=== PATIENT | female | born 1980 | race Two or more races ===

== ENCOUNTER 2018-05-22 10:38 | Emergency (ER) | payer SELFPAY ==
[~2018-05-22] VITALS: Ht 152.4 cm; Wt 76.7 kg
--- NOTE | 2018-05-22 10:58 | NUR ---
ED Nurse Note: Pt came into the ER w/ complaints of headache w/ nausea since this morning. Pt denies vomiting. Pt is rating the pain a 10/10. Non radiating. A + O x4. Ambulatory. Skin warm to touch.
[2018-05-22 10:59] VITALS: BP 135/95
[2018-05-22] MEDS ORDERED: Metoclopramide 10mg/2ml Inj IVP ONE (11:00)
[2018-05-22 11:34] LABS: BASOPHILS % (AUTO) 1.8 % (0.0-2.0); EOSINOPHILS % (AUTO) 2.6 % (0.0-3.0); HEMOGLOBIN 12.9 G/DL (12.0-16.0); LYMPHOCYTES % (AUTO) 26.6 % (20.0-45.0); MEAN CORPUSCULAR VOLUME 89 FL (80-99); MONOCYTES % (AUTO) 7.5 % (1.0-10.0); NEUTROPHILS % (AUTO) 61.5 % (45.0-75.0); PLATELET COUNT 274 K/UL (150-450); RED BLOOD COUNT 4.29 M/UL (4.20-5.40); RED CELL DISTRIBUTION WIDTH 11.8 % (11.6-14.8); WHITE BLOOD COUNT 6.1 K/UL (4.8-10.8)
[2018-05-22 11:37] LABS: APPEARANCE,URINE CLEAR; BILIRUBIN, URINE NEGATIVE (NEGATIVE); COLOR,URINE PALE YELLOW; GLUCOSE, URINE (UA) NEGATIVE (NEGATIVE); KETONES,URINE NEGATIVE (NEGATIVE); LEUKOCYTE ESTERASE ,URINE 2+ (NEGATIVE); NITRITE,URINE NEGATIVE (NEGATIVE); PH,URINE 6.5 (4.5-8.0); PROTEIN,URINE NEGATIVE (NEGATIVE); UROBILINOGEN,URINE NORMAL MG/DL (0.0-1.0)
--- NOTE | 2018-05-22 11:39 | Emergency Room Report ---
History of Present Illness General Chief Complaint: Headache Source: Patient Present Illness HPI Patient is a 38-year-old female presented after increased headache. Patient reports having increased throbbing right-sided headache. She stated this had acute onset. She reports having increased nausea without any vomiting. She denies any diarrhea. She reports having onset of symptoms this morning.. She had prior history of hypertension. Allergies: Coded Allergies: No Known Allergies (Unverified , 05/22/18) Patient History Past Medical History: see triage record Last Menstrual Period: now Now: No Reviewed Nursing Documentation: PMH: Agreed; PSxH: Agreed Nursing Documentation-PMH Past Medical History: No Stated History Physical Exam Vital Signs Date Time Temp Pulse Resp B/P (MAP) Pulse Ox O2 Delivery O2 Flow Rate FiO2 05/22/18 10:43 98.8 69 20 140/100 99 Room Air Sp02 EP Interpretation: reviewed, normal General Appearance: normal inspection, well appearing, no apparent distress, alert, GCS 15, non-toxic Head: atraumatic ENT: normal ENT inspection, hearing grossly normal, normal voice Neck: normal inspection, full range of motion, supple, no bony tend Respiratory: normal inspection, lungs clear, normal breath sounds, no respiratory distress, no retraction, no wheezing Cardiovascular #1: regular rate, rhythm, no edema Gastrointestinal: normal inspection, normal bowel sounds, non tender, soft, no guarding, no hernia Genitourinary: no CVA tenderness Musculoskeletal: normal inspection, back normal, normal range of motion Neurologic: normal inspection, alert, oriented x3, responsive, paralegal supervisor III-XII nml as tested, speech normal Psychiatric: normal inspection, judgement/insight normal, mood/affect normal Skin: normal inspection, normal color, no rash Medical Decision Making Diagnostic Impression: Primary Impression: Headache ER Course Patient presented for headache. Differential diagnoses included but was not limited to skull fracture, subarachnoid hemorrhage, meningitis, aneurysm, mass lesion, intracranial hemorrhage. CT imaging of the head read by radiology showed multiple calcifications without any evidence of acute intracranial process. 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 Patient was given Reglan for pain with complete resolution of her headache. Patient denies any current headache after medications. She is given prescription for oral Reglan. She advised not to take this unless she continued to have a headache. She is advised to follow-up with her primary care physician for further evaluation. EKG Diagnostic Results Rate: normal Rhythm: NSR ST Segments: no acute changes Last Vital Signs Date Time Temp Pulse Resp B/P (MAP) Pulse Ox O2 Delivery O2 Flow Rate FiO2 05/22/18 10:59 98.5 69 22 135/95 100 Room Air Status: improved Disposition: HOME, SELF-CARE Condition: Stable Scripts Metoclopramide Hcl* (REGLAN*) 10 Mg Tablet 10 MG ORAL THREE TIMES A DAY, #20 TAB Prov: Miguel Ángel Vasquez MD 05/22/18 Miguel Ángel Vasquez MD May 22, 2018 11:39
[2018-05-22 11:44] LABS: BLOOD UREA NITROGEN 12 mg/dL (7-18); CALCIUM 9.1 MG/DL (8.5-10.1); CHLORIDE 104 MMOL/L (98-107); CREATININE 0.6 MG/DL (0.55-1.30)
[2018-05-22 11:49] LABS: ALANINE AMINOTRANSFERASE 29 U/L (12-78); ALBUMIN 3.5 G/DL (3.4-5.0); ALBUMIN/GLOBULIN RATIO 0.9 (1.0-2.7); ALKALINE PHOSPHATASE 90 U/L (46-116); ASPARTATE AMINO TRANSFERASE 17 U/L (15-37); BILIRUBIN,TOTAL 0.3 MG/DL (0.2-1.0)
--- NOTE | 2018-05-22 11:58 | NUR ---
ED Nurse Note: Pt went down to CT.
[2018-05-22 12:01] LABS: SODIUM 141 MMOL/L (136-145)
[2018-05-22 12:02] LABS: POTASSIUM 4.1 MMOL/L (3.5-5.1)
[2018-05-22 12:03] LABS: ANION GAP 9 mmol/L (5-15)
[2018-05-22 12:04] LABS: CARBON DIOXIDE 25 MMOL/L (21-32)
--- NOTE | 2018-05-22 12:09 | NUR ---
ED Nurse Note: Pt back from CT.
[2018-05-22 12:45] VITALS: BP 117/69
[2018-05-22] MEDS ORDERED: REGLAN10 MG ORAL (13:13)
[2018-05-22 13:23] VITALS: BP 118/73
--- NOTE | 2018-05-22 13:24 | NUR ---
ER DISCHARGE NOTE: Patient is cleared to be discharged per ERMD, pt is aox4, on room air, with stable vital signs. pt was given dc and prescription instructions, pt was able to verbalize understanding, pt id band and iv site removed without complications. pt is able to ambulate with steady gait. pt took all belongings.
--- NOTE | 2018-05-23 19:58 | Cardiology Report ---
APPROVED REPORT EKG Measurement Heart [id number] Normal sinus rhythm Normal ECG
== END 2018-05-22 13:24 | disposition home or self-care (01) ==
LOC: EMR 11:51
DX: R51 Headache (principal); R11.0 Nausea; I10 Essential (primary) hypertension
CPT/HCPCS: 36415; 70450; 80053; 80307; 81001; 81025; 84484; 85025; 86850; 86900; 86901; 93005; 96374; 99284; J2765

== ENCOUNTER 2018-11-24 05:53 | Emergency (ER) | payer MEDICAID ==
[~2018-11-24] VITALS: Ht 154.9 cm; Wt 77.1 kg
[~2018-11-24 05:53] MED LIST: REGLAN10 MG ORAL
[2018-11-24 06:07] VITALS: BP 122/72
--- NOTE | 2018-11-24 06:08 | NUR ---
ED Nurse Note: pt walked in to ED C/O CHAND since 8 days ago. pt states poosterior area of her head feels warm. pt denies any trauma/ inury. pt states she does feel nauseous but denies vomiting. pt also states she has been having tremors. pt is alert x 4
--- NOTE | 2018-11-24 06:30 | NUR ---
ED Nurse Note: urine and blood sample sent to lab
--- NOTE | 2018-11-24 06:31 | Emergency Room Report ---
History of Present Illness General Chief Complaint: Headache Source: Patient Present Illness HPI Patient is a 38-year-old female presents after increased dizziness as well as tingling sensation to the back of the head. She had prior history of headaches in the past. She had a gradual onset of symptoms associated with some dizziness. She reports having some dry mouth as well as generalized anxiety. She had previously been on anxiety medications. She states been off of this For several days.Patient denies any change in menses. She had not been vomiting or having any diarrhea. She reports having mild nausea.She had prior ER visits for similar symptoms and had CT imaging which showed some calcifications without evidence of acute hydrocephalus or intracranial pathology. Allergies: Coded Allergies: No Known Allergies (Unverified , 05/22/18) Patient History Past Medical History: see triage record Last Menstrual Period: 11/22/2018 Now: No Reviewed Nursing Documentation: PMH: Agreed; PSxH: Agreed Nursing Documentation-PMH Past Medical History: No Stated History Review of Systems All Other Systems: negative except mentioned in HPI Physical Exam Vital Signs Date Time Temp Pulse Resp B/P (MAP) Pulse Ox O2 Delivery O2 Flow Rate FiO2 11/24/18 06:01 97.9 82 16 119/72 (88) 96 Room Air Sp02 EP Interpretation: reviewed, normal General Appearance: normal inspection, well appearing, no apparent distress, alert, GCS 15 Head: atraumatic ENT: normal ENT inspection, hearing grossly normal, normal voice Neck: normal inspection, full range of motion, supple, no bony tend Respiratory: normal inspection, lungs clear, normal breath sounds, no respiratory distress, no retraction, no wheezing Cardiovascular #1: regular rate, rhythm, no edema Gastrointestinal: normal inspection, normal bowel sounds, non tender, soft, no guarding, no hernia Genitourinary: no CVA tenderness Musculoskeletal: normal inspection, back normal, normal range of motion Neurologic: normal inspection, alert, oriented x3, responsive, top frame maker III-XII nml as tested, speech normal Psychiatric: normal inspection, judgement/insight normal, mood/affect normal Skin: no rash Medical Decision Making Diagnostic Impression: Primary Impression: Headache ER Course Patient presented for differential diagnoses included but was not limited to viral infection, anxiety, meningitis, aneurysm, mass lesion, intracranial hemorrhage. Because of complexity of patient's case laboratory tests were ordered. Patient was noted to have a prior visit for similar type symptoms. She appears to be somewhat anxious but does not appear to have any focal neurologic deficit. Patient's headaches appear to be intermittent in nature.Laboratory testing showed minimal elevation of blood sugar which patient was advised to need for dietary modification.Patient was noted to have improvement in her headache after medications. Patient was noted advised that she would need follow-up with neurology.She may have some viral infection however she likely requires further work-up with primary care physician. Patient was advised to follow-up with primary care physician for recheck. Labs Test 11/24/18 06:11 11/24/18 06:30 Urine Color Pale yellow Urine Appearance Clear Urine pH 6.5 (4.5-8.0) Urine Specific [place] 1.005 (1.005-1.035) Urine Protein Negative (NEGATIVE) Urine Glucose (UA) Negative (NEGATIVE) Urine Ketones Negative (NEGATIVE) Urine Blood Negative (NEGATIVE) Urine Nitrite Negative (NEGATIVE) Urine Bilirubin Negative (NEGATIVE) Urine Urobilinogen Normal MG/DL (0.0-1.0) Urine Leukocyte Esterase 1+ (NEGATIVE) Urine RBC 0 /HPF (0 - 2) Urine WBC 0-2 /HPF (0 - 2) Urine Squamous Epithelial Cells Occasional /LPF Urine Bacteria Occasional /HPF (NONE) Urine HCG, Qualitative Negative (NEGATIVE) White Blood Count 7.5 K/UL (4.8-10.8) Red Blood Count 4.51 M/UL (4.20-5.40) Hemoglobin 13.9 G/DL (12.0-16.0) Hematocrit 39.6 % (37.0-47.0) Mean Corpuscular Volume 88 FL (80-99) Mean Corpuscular Hemoglobin 30.8 PG (27.0-31.0) Mean Corpuscular Hemoglobin Concent 35.0 G/DL (32.0-36.0) Red Cell Distribution Width 11.1 % (11.6-14.8) Platelet Count 305 K/UL (150-450) Mean Platelet Volume 6.4 FL (6.5-10.1) Neutrophils (%) (Auto) 69.0 % (45.0-75.0) Lymphocytes (%) (Auto) 19.5 % (20.0-45.0) Monocytes (%) (Auto) 8.9 % (1.0-10.0) Eosinophils (%) (Auto) 1.5 % (0.0-3.0) Basophils (%) (Auto) 1.2 % (0.0-2.0) Sodium Level 142 MMOL/L (136-145) Potassium Level 4.0 MMOL/L (3.5-5.1) Chloride Level 108 MMOL/L (98-107) Carbon Dioxide Level 24 MMOL/L (21-32) Anion Gap 10 mmol/L (5-15) Blood Urea Nitrogen 15 mg/dL (7-18) Creatinine 0.7 MG/DL (0.55-1.30) Estimat Glomerular Filtration Rate > 60 mL/min (>60) Glucose Level 108 MG/DL (74-106) Calcium Level 9.2 MG/DL (8.5-10.1) Total Bilirubin 0.5 MG/DL (0.2-1.0) Aspartate Amino Transf (AST/SGOT) 21 U/L (15-37) Alanine Aminotransferase (ALT/SGPT) 28 U/L (12-78) Alkaline Phosphatase 87 U/L (46-116) Total Protein 7.7 G/DL (6.4-8.2) Albumin 3.7 G/DL (3.4-5.0) Globulin 4.0 g/dL Albumin/Globulin Ratio 0.9 (1.0-2.7) Reevaluation Time: 07:46 Last Vital Signs Date Time Temp Pulse Resp B/P (MAP) Pulse Ox O2 Delivery O2 Flow Rate FiO2 11/24/18 06:07 98.2 84 16 122/72 97 Room Air Status: improved Reevaluation Impression Improved headache, steady gait, nonfocal neurologic exam. Disposition: HOME, SELF-CARE Condition: Stable Scripts Meclizine Hcl* (MECLIZINE*) 25 Mg Tablet 25 MG ORAL THREE TIMES A DAY, #30 TAB Prov: Miguel Ángel Vasquez MD 11/24/18 Referrals: NOT CHOSEN [facility]/,REFERRING (PCP) Miguel Ángel Vasquez MD Nov 24, 2018 06:31
[2018-11-24] MEDS ORDERED: DiphenhydrAMINE 50mg/ml Inj IVP ONE (06:45)
[2018-11-24] MEDS ORDERED: Metoclopramide 10mg/2ml Inj IVP ONE (06:45)
[2018-11-24 06:47] LABS: APPEARANCE,URINE CLEAR; BILIRUBIN, URINE NEGATIVE (NEGATIVE); COLOR,URINE PALE YELLOW; GLUCOSE, URINE (UA) NEGATIVE (NEGATIVE); KETONES,URINE NEGATIVE (NEGATIVE); LEUKOCYTE ESTERASE ,URINE 1+ (NEGATIVE); NITRITE,URINE NEGATIVE (NEGATIVE); PH,URINE 6.5 (4.5-8.0); PROTEIN,URINE NEGATIVE (NEGATIVE); UROBILINOGEN,URINE NORMAL MG/DL (0.0-1.0)
[2018-11-24 06:52] LABS: BASOPHILS % (AUTO) 1.2 % (0.0-2.0); EOSINOPHILS % (AUTO) 1.5 % (0.0-3.0); HEMATOCRIT 39.6 % (37.0-47.0); HEMOGLOBIN 13.9 G/DL (12.0-16.0); LYMPHOCYTES % (AUTO) 19.5 % (20.0-45.0); MEAN CORPUSCULAR VOLUME 88 FL (80-99); MONOCYTES % (AUTO) 8.9 % (1.0-10.0); PLATELET COUNT 305 K/UL (150-450); RED BLOOD COUNT 4.51 M/UL (4.20-5.40); RED CELL DISTRIBUTION WIDTH 11.1 % (11.6-14.8); WHITE BLOOD COUNT 7.5 K/UL (4.8-10.8)
[2018-11-24 07:01] LABS: ANION GAP 10 mmol/L (5-15); BLOOD UREA NITROGEN 15 mg/dL (7-18); CALCIUM 9.2 MG/DL (8.5-10.1); CARBON DIOXIDE 24 MMOL/L (21-32); CHLORIDE 108 MMOL/L (98-107); CREATININE 0.7 MG/DL (0.55-1.30); SODIUM 142 MMOL/L (136-145)
[2018-11-24 07:10] LABS: ALANINE AMINOTRANSFERASE 28 U/L (12-78); ALBUMIN 3.7 G/DL (3.4-5.0); ALBUMIN/GLOBULIN RATIO 0.9 (1.0-2.7); ALKALINE PHOSPHATASE 87 U/L (46-116); ASPARTATE AMINO TRANSFERASE 21 U/L (15-37); BILIRUBIN,TOTAL 0.5 MG/DL (0.2-1.0)
--- NOTE | 2018-11-24 07:10 | NUR ---
HAND-OFF: Report given to JANETT Quezada.
--- NOTE | 2018-11-24 07:19 | NUR ---
ED Nurse Note: PT and report received from JANETT Cheatham. PT A/O x 4; received sleeping, easily arousable by name, follows commands. VS stable; T: 97.1; BP 148/68; RR 19; O2 sat 99% on RA. No respiratory distress noted; PT at bedside.
[2018-11-24 07:23] VITALS: BP 148/68
[2018-11-24] MEDS ORDERED: MECLIZINE HCL25 MG ORAL (07:27)
[2018-11-24 07:29] VITALS: BP 148/68
--- NOTE | 2018-11-24 07:49 | NUR ---
ED Nurse Note: PT asked to go to restroom, ambulated without difficulty, steady gait, no dizziness noted. MD Pedro has D/C orders.
[2018-11-24 07:57] VITALS: BP 148/68
--- NOTE | 2018-11-24 08:01 | NUR ---
ER DISCHARGE NOTE: Patient is cleared to be discharged per ERMD, pt is aox4, on room air, with stable vital signs. pt was given dc and prescription instructions, pt was able to verbalize understanding, pt id band and iv site removed without complications. pt is able to ambulate with steady gait. pt took all belongings. Addendum: 11/24/18 at 0801 by SCOT ER DISCHARGE NOTE: Patient is cleared to be discharged per ERMD, pt is aox4, on room air, with stable vital signs. pt was given dc, prescription instructions, and lab report per MD Pedro. pt was able to verbalize understanding and signed for D/C by herself, pt id band and iv site removed without complications. pt is able to ambulate with steady gait. pt took all belongings. PT present at D/C and will transport PT.
== END 2018-11-24 07:41 | disposition home or self-care (01) ==
LOC: EMR 06:29
DX: R51 Headache (principal); E03.9 Hypothyroidism, unspecified
CPT/HCPCS: 36415; 80053; 81001; 81003; 81025; 84443; 85025; 96374; 96375; J1200; J2765; J7040; Z7502; 99284